=== PATIENT | female | born 1970 | race Caucasian/White ===

== ENCOUNTER 2017-07-14 21:43 | Emergency (ER) | payer SELFPAY, OTHER ==
[2017-07-14] MEDS: FLUORESCEIN OPHTH TEST STRIP. OS (22:25)
[2017-07-14] MEDS: TETRACAINE 0.5% OPHTH SOLUTION 4ML BOTTLE. OS (22:25)
== END 2017-07-14 23:22 | disposition home or self-care (01) ==
LOC: ER 21:43
DX: T15.02XA Foreign body in cornea, left eye, initial encounter (principal); F90.9 Attention-deficit hyperactivity disorder, unspecified type; Z90.49 Acquired absence of other specified parts of digestive tract; Z90.710 Acquired absence of both cervix and uterus; Z88.0 Allergy status to penicillin; X58.XXXA Exposure to other specified factors, initial encounter; Y93.89 Activity, other specified; Y92.89 Other specified places as the place of occurrence of the external cause; Y99.8 Other external cause status
CPT/HCPCS: 65220; 99284

== ENCOUNTER 2019-07-10 18:11 | Emergency (ER) | payer SELFPAY ==
[~2019-07-10] VITALS: Ht 160 cm; Wt 59.3 kg
[~2019-07-10 18:11] MED LIST: CIPR2.5D OS; HYDR-2761 PO; HYDR-3164 PO; IBUP-1027 PO; LEVO500T59 PO; LEVO750T31 PO
[2019-07-10 18:30] VITALS: BP 124/66
[2019-07-10] MEDS ORDERED: GUAI120L35 PO (18:35)
[2019-07-10] MEDS ORDERED: METH4TAB2 PO (18:35)
[2019-07-10] MEDS ORDERED: AZIT250T6 PO (18:35)
--- NOTE | 2019-07-10 18:35 | PHYS DOC ---
Past Medical History Past Medical History: Other Additional Past Medical Histor: ADHD Past Surgical History: Appendectomy, , Hysterectomy Smoking Status: Current Every Day Smoker Alcohol Use: None Drug Use: None Adult General Chief Complaint Chief Complaint: COUGH HPI HPI Patient is a 48 year old female who presents with cough, sore throat, chest congestion, low-grade fever for the past 14 days. Patient states she's been using Mucinex DM and DayQuil and NyQuil. She states she is coughing up large amounts of light green mucus and blowing that out of her nose too. She states she has nasal congestion cannot breathe out of her nose. She states that she does smoke 3-4 cigarettes a day. She denies shortness of breath, chest pain, nausea, vomiting, diarrhea, dizziness, headache, LOC, numbness or tingling, visual changes, focal weakness. Review of Systems Review of Systems Constitutional: ronnie or chills [] HENT: nasal congestion or sore throat [] Respiratory: cough or denies shortness of breath [] All other systems were reviewed and found to be within normal limits, except as documented in this note. Allergies Allergies Allergies Coded Allergies Type Severity Reaction Last Updated Verified Penicillins Allergy Intermediate 11/21/15 Yes Physical Exam Physical Exam Constitutional: Well developed, well nourished, no acute distress, non-toxic appearance. [] HENT: Normocephalic, atraumatic, bilateral external ears normal, oropharynx moist, no oral exudates, nose normal. Throat reddened, no swelling or exudates. [] Eyes: PERRLA, EOMI, conjunctiva normal, no discharge. [] Neck: Normal range of motion, no tenderness, supple, no stridor. [] Cardiovascular:Heart rate regular rhythm, no murmur [] Lungs & Thorax: Bilateral upper breath sounds clear and lower diminished to auscultation [] Abdomen: Bowel sounds normal, soft, no tenderness, no masses, no pulsatile masses. [] Skin: Warm, dry, no erythema, no rash. [] Back: No tenderness, no CVA tenderness. [] Extremities: No tenderness, no cyanosis, no clubbing, ROM intact, no edema. [] Neurologic: Alert and oriented X 3, normal motor function, normal sensory function, no focal deficits noted. [] Psychologic: Affect normal, judgement normal, mood normal. [] Current Patient Data Vital Signs Vital Signs Date Time Temp Pulse Resp B/P (MAP) Pulse Ox O2 Delivery O2 Flow Rate FiO2 07/10/19 18:30 98.4 83 16 124/66 (85) 98 Room Air 98.4 EKG EKG [] Radiology/Procedures Radiology/Procedures [] Course & Med Decision Making Course & Med Decision Making Pertinent Labs and Imaging studies reviewed. (See chart for details) Alert and oriented. Speaks in full clear sentences. Skin pink warm and dry. Lungs are clear in upper lobes but diminished in lower lobes bilaterally. Vital signs are within normal limits. Patient states she is having hard time sleeping is having to sleep sitting up. She states that her cough is keeping her up at night also. Throat is red but there is no swelling or exudates. No rashes. She denies having asthma or COPD history. She is afebrile in the emergency room. Patient is given antibiotic, cough medication, inhaler and steroids. Chest Xray read by Dr Pope as no obvious acute findings. [] Dragon Disclaimer Dragon Disclaimer This electronic medical record was generated, in whole or in part, using a voice recognition dictation system. Departure Departure Impression: Primary Impression: Cough Additional Impressions: Fever Nasal congestion Chest congestion Disposition: 01 HOME, SELF-CARE Condition: STABLE Referrals: KARLA GOLDBERG MD (PCP) Patient Instructions: Cough, Adult Additional Instructions: Follow up with primary care provider. Drink plenty of fluids. Take Tylenol or Ibuprofen for pain or fever. Take medication as prescribed and with food. Scripts Albuterol Sulfate (PROAIR HFA INHALER) 8.5 Gm Hfa.aer.ad 1 PUFF INH PRN Q6HRS PRN for SHORTNESS OF BREATH, #1 INHALER 0 Refills Prov: ERIC MALAGON HARDWARE TECHNICIAN 07/10/19 Guaifenesin/Codeine Phosphate (Codeine-Guaifen 10-100 mg/5 ml) 120 Ml Liquid 5 ML PO PRN Q6HRS PRN for cough and congestion MDD 20 Milliliter(s) for 6 Days, #120 ML 0 Refills Prov: ERIC MALAGON HARDWARE TECHNICIAN 07/10/19 Methylprednisolone (MEDROL) 4 Mg Tab.ds.pk 1 PKG PO UD, #1 PKG Prov: BAFUSJAYCEA M HARDWARE TECHNICIAN 07/10/19 Azithromycin (AZITHROMYCIN TABLET) 250 Mg Tablet 1 PKG PO UD for 5 Days, #6 TAB 0 Refills 2 the first day followed by 1 for days 2-5 Prov: ERIC MALAGON APRN 07/10/19 Problem Qualifiers Additional Impressions: Fever Fever type: unspecified Qualified Codes: R50.9 - Fever, unspecified ERIC MALAGON APRN Jul 10, 2019 18:35
[2019-07-10] MEDS ORDERED: ALBU2.5V8 INH (19:15)
--- NOTE | 2019-07-10 20:00 | RAD ---
Exam: Chest 2 views INDICATION: Cough TECHNIQUE: Frontal and lateral views the chest Comparisons: None FINDINGS: The cardiomediastinal silhouette and pulmonary vessels are within normal limits. The lung and pleural spaces are clear. IMPRESSION: No acute cardiopulmonary process. Electronically signed by: Kayode Childress MD (07/10/2019 7:57 PM) [id number]
== END 2019-07-10 19:48 | disposition home or self-care (01) ==
LOC: ER 18:11
DX: R05 Cough (principal); R50.9 Fever, unspecified; R09.81 Nasal congestion; R09.89 Other specified symptoms and signs involving the circulatory and respiratory systems; J02.9 Acute pharyngitis, unspecified; F17.200 Nicotine dependence, unspecified, uncomplicated; Z88.0 Allergy status to penicillin
CPT/HCPCS: 71046; 99283

== ENCOUNTER 2020-03-27 00:12 | Emergency (ER) | payer SELFPAY ==
[~2020-03-27] VITALS: Ht 157.5 cm; Wt 52.0 kg
[~2020-03-27 00:12] MED LIST changes: +ALBU2.5V8 INH; +AZIT250T6 PO; -CIPR2.5D OS; +CIPR2.5D2 OS; +GUAI120L35 PO; +METH4TAB2 PO
[2020-03-27 01:06] VITALS: BP 129/70
[2020-03-27] MEDS ORDERED: CIPROFLOXACIN 0.3% OPHTH SOLUTION 5ML BOTTLE. OD ONE (02:00)
[2020-03-27] MEDS ORDERED: diazePAM 5 MG TABLET PO ONE (02:00)
[2020-03-27] MEDS ORDERED: KETOROLAC 60 MG/2 ML VIAL. IM ONE (02:00)
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
[2020-03-27] MEDS ORDERED: NAPR-682 PO (05:32)
[2020-03-27] MEDS ORDERED: METH-38 PO (05:32)
--- NOTE | 2020-03-27 06:39 | RAD ---
EXAMINATION: SHOULDER 2+V RIGHT CLINICAL HISTORY: Shoulder pain TECHNIQUE: SHOULDER 2+V RIGHT Number of Images/Views: 3 COMPARISON: None FINDINGS: Joint spaces and alignment maintained. No acute fracture. No focal soft tissue swelling. IMPRESSION: No acute osseous abnormality right shoulder. Electronically signed by: Gilbert Sierra DO (03/27/2020 6:36 AM) [facility]
== END 2020-03-27 05:52 | disposition home or self-care (01) ==
LOC: ER 00:12
DX: G89.11 Acute pain due to trauma (principal); R07.89 Other chest pain; H11.30 Conjunctival hemorrhage, unspecified eye; R60.0 Localized edema; M54.6 Pain in thoracic spine; M25.511 Pain in right shoulder; F17.200 Nicotine dependence, unspecified, uncomplicated; F90.9 Attention-deficit hyperactivity disorder, unspecified type; Z90.89 Acquired absence of other organs; Z90.710 Acquired absence of both cervix and uterus; Z98.890 Other specified postprocedural states; Z88.0 Allergy status to penicillin; V98.8XXA Other specified transport accidents, initial encounter; Y93.89 Activity, other specified; Y92.488 Other paved roadways as the place of occurrence of the external cause; Y99.8 Other external cause status
CPT/HCPCS: 70450; 70486; 71250; 73030; 96374; 99285; J1885